=== PATIENT | female | born 1965 | race Caucasian/White ===

== ENCOUNTER 2016-04-06 09:46 | Outpatient (CLI) | payer BC, OTHER | END 2016-04-06 23:59 | DX: Z00.00 Encounter for general adult medical examination without abnormal findings (principal) ==

== ENCOUNTER 2016-04-13 10:02 | Outpatient (CLI) | payer OTHER | END 2016-04-13 10:03 | disposition home or self-care (01) | DX: Z12.31 Encounter for screening mammogram for malignant neoplasm of breast (principal) ==

== ENCOUNTER 2016-12-27 15:15 | Outpatient (CLI) | payer OTHER ==
[2016-12-27 19:11] LABS: HCT - HEMATOCRIT 41.5 % (37.0-47.0); HGB - HEMOGLOBIN 14.1 g/dL (12.0-16.0); MEAN CORPUSCULAR HEMOGLOBIN 33.7 pg (27.0-31.0); MEAN CORPUSCULAR HGB CONC 34.1 g/dL (32.0-36.0); MEAN CORPUSCULAR VOLUME 98.9 fL (81.0-99.0); MEAN PLATELET VOLUME 8.4 fL (7.9-10.8); RED BLOOD COUNT 4.2 10^6/uL (4.20-5.40); RED CELL DISTRIBUTION WIDTH 12.6 % (12.0-15.0); WHITE BLOOD COUNT 5.8 x10^3/uL (4.8-10.8)
[2016-12-27 19:24] LABS: ALBUMIN/GLOBULIN RATIO 1.7 (1.0-2.2); BILIRUBIN,TOTAL 0.5 mg/dL (0.2-1.0); CALCIUM 9.5 mg/dL (8.5-10.3); CREATININE 1.1 mg/dL (0.4-1.0); POTASSIUM 4.1 mmol/L (3.5-5.0); TOTAL PROTEIN 7.3 g/dL (6.7-8.2)
== END 2016-12-27 15:16 | disposition home or self-care (01) ==
LOC: LAB.WCP 15:15
PROVIDERS: ATTEND Family Medicine
DX: R42 Dizziness and giddiness (principal)
CPT/HCPCS: 36415; 80053; 85025

== ENCOUNTER 2018-01-23 11:28 | Outpatient (CLI) | payer OTHER ==
--- NOTE | 2018-01-24 09:02 | Mammography Report ---
Reason: SCREENING MAMMO Procedure Date: 01/23/2018 Accession Number: [id number] / [id number] Procedure: MGN - Screening Mammo Dig Bilat CPT Code: FULL RESULT: EXAM: Screening Mammo Dig Bilat DATE: 01/23/2018 11:47 AM CLINICAL HISTORY: Screening encounter. History of nulliparity and history of breast reduction in 2009 bilaterally. TECHNIQUE: Bilateral CC, laterally exaggerated CC, MLO views were obtained. COMPARISON: 04/13/2016 through 10/26/2009. FINDINGS: The breasts demonstrate heterogeneously dense fibroglandular parenchyma bilaterally. Typically benign coarse calcifications are again noted. No suspicious masses, clustered microcalcifications, or regions of architectural distortion are identified. IMPRESSION: Benign findings RECOMMENDATION: Routine annual screening unless otherwise clinically indicated. BIRADS CATEGORY 2: Benign findings STANDARD QUALIFYING STATEMENTS: 1. This examination was reviewed with the aid of Computer-Aided Detection (CAD). 2. A negative or benign imaging report should not preclude biopsy if clinically suspicious findings are present. 3. Dense breasts may obscure an underlying neoplasm. 4. This examination was reviewed without the aid of 3D breast imaging (tomosynthesis).
== END 2018-01-23 11:29 | disposition home or self-care (01) ==
LOC: DI.N 11:28
DX: Z12.31 Encounter for screening mammogram for malignant neoplasm of breast (principal)
CPT/HCPCS: 77067

== ENCOUNTER 2020-05-03 08:00 | Outpatient (CLI) | payer OTHER ==
[2020-05-03 18:21] LABS: BASOPHILS % (AUTO) 0.5 %; EOSINOPHILS # (AUTO) 0.1 10^3/uL (0.0-0.7); HCT - HEMATOCRIT 40.1 % (37.0-47.0); HGB - HEMOGLOBIN 13.5 g/dL (12.0-16.0); LYMPHOCYTES # (AUTO) 2.8 10^3/uL (1.5-3.5); LYMPHOCYTES % (AUTO) 49.1 %; MEAN CORPUSCULAR HEMOGLOBIN 33.5 pg (27.0-31.0); MEAN CORPUSCULAR HGB CONC 33.7 g/dL (32.0-36.0); MEAN CORPUSCULAR VOLUME 99.5 fL (81.0-99.0); MEAN PLATELET VOLUME 10.1 fL (7.9-10.8); MONOCYTES # (AUTO) 0.4 10^3/uL (0.0-1.0); MONOCYTES % (AUTO) 6.4 %; NEUTROPHILS # (AUTO) 2.5 10^3/uL (1.5-6.6); NEUTROPHILS % (AUTO) 42.8 %; PLT - PLATELET COUNT 269 10^3/uL (130-450); RED BLOOD COUNT 4.03 10^6/uL (4.20-5.40); RED CELL DISTRIBUTION WIDTH 12.1 % (12.0-15.0); WHITE BLOOD COUNT 5.7 x10^3/uL (4.8-10.8)
[2020-05-03 18:32] LABS: ALBUMIN 4.5 g/dL (3.2-5.5); ALBUMIN/GLOBULIN RATIO 1.7 (1.0-2.2); ALKALINE PHOSPHATASE 50 IU/L (42-121); ALT ALANINE AMINOTRANSFERASE 24 IU/L (10-60); AST ASPARTATE AMINOTRANSFERASE 23 IU/L (10-42); BILIRUBIN,TOTAL 0.5 mg/dL (0.2-1.0); BUN - BLOOD UREA NITROGEN 23 mg/dL (6-20); CALCIUM 9.4 mg/dL (8.5-10.3); CARBON DIOXIDE - CO2 25 mmol/L (21-32); CHLORIDE 100 mmol/L (101-111); CHOL/HDL RATIO 3.3 (<4.4); CHOLESTEROL 229 mg/dL; GFR - MDRD 58 (>89); GLUCOSE 101 mg/dL (70-100); HDL CHOLESTEROL 70 mg/dL; LDL CHOLESTEROL,CALCULATED 141 mg/dL; POTASSIUM 3.6 mmol/L (3.5-5.0); SODIUM 135 mmol/L (135-145); TOTAL PROTEIN 7.2 g/dL (6.7-8.2); TRIGLYCERIDES 89 mg/dL; VLDL CHOLESTEROL 18 mg/dL
== END 2020-05-03 23:59 | disposition home or self-care (01) ==
LOC: LAB.WCP 08:00
PROVIDERS: ATTEND Family Medicine
DX: Z00.00 Encounter for general adult medical examination without abnormal findings (principal)
CPT/HCPCS: 36415; 80053; 80061; 83721; 84443; 85025

== ENCOUNTER 2020-05-23 09:19 | Outpatient (CLI) | payer OTHER ==
--- NOTE | 2020-05-24 08:11 | Mammography Report ---
BILATERAL DIGITAL SCREENING MAMMOGRAM 3D/2D: 05/23/2020 CLINICAL: Routine screening. Comparison is made to exams dated: 01/23/2018 mammogram, 04/13/2016 mammogram, and 06/11/2013 mammogram - [facility]. The tissue of both breasts is heterogeneously dense. This may lower the sensitivity of mammography. No significant masses, calcifications, or other findings are seen in either breast. There has been no significant interval change. IMPRESSION: NEGATIVE There is no mammographic evidence of malignancy. A 1 year screening mammogram is recommended. This exam was interpreted at Station ID: [id number]. NOTE: For mammograms, a report in lay terms will be sent to the patient. Approximately 15% of breast malignancies will not be visualized mammographically. In the management of a palpable breast mass, a negative mammogram must not discourage biopsy of a clinically suspicious lesion. Electronically Signed By: Urbano Patel M.D. slc/penrad:05/23/2020 10:04:11 ACR BI-RADS Category 1: Negative 3341F PARENCHYMAL PATTERN: (D) - The breast(s) demonstrate(s) heterogeneously dense fibroglandular jayson flores. BI-RADS CATEGORY: (1) - 1 RECOMMENDATION: (ANNUAL) - Recommend routine annual screening mammography. [id number] 1 year screening LATERALITY: (B)
== END 2020-05-23 09:20 | disposition home or self-care (01) ==
LOC: DI.N 09:19
DX: Z12.31 Encounter for screening mammogram for malignant neoplasm of breast (principal)

== ENCOUNTER 2020-09-20 09:13 | Outpatient (CLI) | payer OTHER ==
--- NOTE | 2020-09-20 13:22 | XRAY Report ---
PROCEDURE: Knee 3 View RT INDICATIONS: SPRAIN OF R KNEE TECHNIQUE: 3 views of the right knee(s) were acquired. COMPARISON: None. FINDINGS: Bones: No fractures or dislocations. No suspicious bony lesions. Soft tissues: No joint effusion. No suspicious soft tissue calcifications. IMPRESSION: No trauma found, no effusion or loose body seen. Reviewed by: Salas Bates MD on 09/20/2020 1:21 PM PDT Approved by: Salas Bates MD on 09/20/2020 1:21 PM PDT Station ID: [id number]
== END 2020-09-20 09:14 | disposition home or self-care (01) ==
LOC: DI.N 09:13
PROVIDERS: ATTEND Physician Assistant Medical
DX: S83.91XA Sprain of unspecified site of right knee, initial encounter (principal)

== ENCOUNTER 2021-06-15 07:58 | Emergency (ER) | payer OTHER ==
[2021-06-15 08:36] LABS: BASOPHILS % (AUTO) 0.2 %; EOSINOPHILS # (AUTO) 0.1 10^3/uL (0.0-0.7); EOSINOPHILS % (AUTO) 1.1 %; HCT - HEMATOCRIT 41.9 % (37.0-47.0); HGB - HEMOGLOBIN 14.2 g/dL (12.0-16.0); LYMPHOCYTES # (AUTO) 1.5 10^3/uL (1.5-3.5); LYMPHOCYTES % (AUTO) 33.9 %; MEAN CORPUSCULAR HEMOGLOBIN 33.7 pg (27.0-31.0); MEAN CORPUSCULAR HGB CONC 33.9 g/dL (32.0-36.0); MEAN CORPUSCULAR VOLUME 99.5 fL (81.0-99.0); MEAN PLATELET VOLUME 9.6 fL (7.9-10.8); MONOCYTES # (AUTO) 0.2 10^3/uL (0.0-1.0); MONOCYTES % (AUTO) 4.5 %; NEUTROPHILS # (AUTO) 2.7 10^3/uL (1.5-6.6); NEUTROPHILS % (AUTO) 60.3 %; PLT - PLATELET COUNT 246 10^3/uL (130-450); RED BLOOD COUNT 4.21 10^6/uL (4.20-5.40); WHITE BLOOD COUNT 4.5 x10^3/uL (4.8-10.8)
--- NOTE | 2021-06-15 08:38 | ED Physician Documentation ---
PD HPI ABD PAIN - Stated complaint Stated Complaint: ABD PX - Chief complaint Chief Complaint: Abd Pain - History obtained from History obtained from: Patient - History of Present Illness Timing - onset: How many weeks ago (1) Timing - duration: Weeks (1) Timing - details: Gradual onset, Still present Quality: Cramping, Aching, Fullness/distended (feeling of bloating and distended lower abd. SHe thought it was gas or constipation. Tried Gas-Ex and stool softeners with some stool output. SHe is urinating but feels is not emptying fully. Denies vaginal discharge or bleeding.), Pain Radiation: Lower back, Left flank Improved by: BM. No: Eating Worsened by: Palpation. No: Eating Associated symptoms: Nausea, Constipation. No: Fever, Vomiting, Diarrhea, Dysuria, Vaginal bleeding, Vaginal dc Similar symptoms before: No diagnosis (she states she has had some lower left abd pain/cramps for months at times. Had had pelvic pains even years ago with pelvic U/S showing 3 cm ovarian dermoid at the time in 2013.) Recently seen: Not recently seen Review of Systems Constitutional: denies: Fever, Chills Nose: denies: Rhinorrhea / runny nose, Congestion Throat: denies: Sore throat Respiratory: denies: Cough GI: reports: Abdominal Pain, Nausea, Constipation (she felt less BMs, but not prolonged constipation per se.). denies: Vomiting, Diarrhea : reports: Hesitancy (feeling of incomplete emptying). denies: Dysuria, Discharge, Vaginal bleeding Skin: denies: Rash Musculoskeletal: denies: Neck pain, Back pain Neurologic: reports: Generalized weakness. 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: Ovarian cysts (left ovary years ago) Other Past Medical History: seasonal allergies - Past Surgical History Past Surgical History: Yes - Present Medications Home Medications: Ambulatory Orders Medication Instructions Recorded Confirmed Amox/Clav 875/125 [Augmentin] 1 each PO Q12H #10 tablet 06/15/21 Ondansetron Odt [Zofran] 4 mg TL Q6H PRN #10 tablet 06/15/21 - Allergies Allergies/Adverse Reactions: Allergies Allergy/AdvReac Type Severity Reaction Status Date / Time acetaminophen [From Vicodin] Allergy Unknown Verified 06/15/21 08:16 hydrocodone [From Vicodin] Allergy Unknown Verified 06/15/21 08:16 - Social History Does the pt smoke?: No Smoking Status: Never smoker - Immunizations Immunizations are current?: Yes PD ED PE NORMAL - Vitals Vital signs reviewed: Yes - General General: Alert and oriented X 3, Well developed/nourished - Neck Neck: Supple, no meningeal sign, No adenopathy - Cardiac Cardiac: RRR, No murmur - Respiratory Respiratory: Clear bilaterally - Abdomen Abdomen: Normal bowel sounds, Soft, Non distended, No organomegaly, Other (tender with fullness suprapubic and left lower abd, with mild percussion tenderness but no rebound nor referred tenderness. ) - Female Female : Deferred - Rectal Rectal: Deferred - Back Back: No CVA TTP - Derm Derm: Normal color, Warm and dry - Neuro Neuro: Alert and oriented X 3, No motor deficit, No sensory deficit, Normal speech Results - Vitals Vitals: Vital Signs - 24 hr 06/15/21 06/15/21 06/15/21 08:05 09:13 10:43 Temperature 37 C Heart Rate 77 61 57 L Respiratory 16 16 16 Rate Blood Pressure 135/78 H 94/61 O2 Saturation 99 100 100 06/15/21 06/15/21 13:11 14:16 Temperature 37.0 C Heart Rate 81 85 Respiratory 20 16 Rate Blood Pressure 110/69 117/92 H O2 Saturation 99 98 Oxygen O2 Source Room air - Labs Labs: Laboratory Tests 06/15/21 06/15/21 06/15/21 08:28 08:28 08:28 WBC 4.5 L RBC 4.21 Hgb 14.2 Hct 41.9 MCV 99.5 H MCH 33.7 H MCHC 33.9 RDW 13.0 Plt Count 246 MPV 9.6 Neut # (Auto) 2.7 Lymph # (Auto) 1.5 [place] # (Auto) 0.2 Eos # (Auto) 0.1 Baso # (Auto) 0.0 Absolute Nucleated RBC 0.00 Nucleated RBC % 0.0 Sodium 138 Potassium 3.5 Chloride 103 Carbon Dioxide 26 Anion Gap 9.0 BUN 15 Creatinine 0.8 Estimated GFR (MDRD) 74 L Glucose 114 H Calcium 9.0 Total Bilirubin 0.7 AST 21 ALT 21 Alkaline Phosphatase 44 Total Protein 6.3 L Albumin 3.7 Globulin 2.6 Albumin/Globulin Ratio 1.4 Lipase 36 CA 125 Antigen 141.6 H Urine Color Urine Clarity Urine pH Ur Specific [place] Urine Protein Urine Glucose (UA) Urine Ketones Urine Occult Blood Urine Nitrite Urine Bilirubin Urine Urobilinogen Ur Leukocyte Esterase Ur Microscopic Review Urine Culture Comments 06/15/21 09:08 WBC RBC Hgb Hct MCV MCH MCHC RDW Plt Count MPV Neut # (Auto) Lymph # (Auto) [place] # (Auto) Eos # (Auto) Baso # (Auto) Absolute Nucleated RBC Nucleated RBC % Sodium Potassium Chloride Carbon Dioxide Anion Gap BUN Creatinine Estimated GFR (MDRD) Glucose Calcium Total Bilirubin AST ALT Alkaline Phosphatase Total Protein Albumin Globulin Albumin/Globulin Ratio Lipase CA 125 Antigen Urine Color YELLOW Urine Clarity CLEAR Urine pH 6.5 Ur Specific [place] 1.025 Urine Protein NEGATIVE Urine Glucose (UA) NEGATIVE Urine Ketones NEGATIVE Urine Occult Blood NEGATIVE Urine Nitrite NEGATIVE Urine Bilirubin NEGATIVE Urine Urobilinogen 0.2 (NORMAL) Ur Leukocyte Esterase NEGATIVE Ur Microscopic Review NOT INDICATED Urine Culture Comments NOT INDICATED - Rads (name of study) abd CT Radiology: Prelim report reviewed (left ovarian mass 7x7x6 cm concerning for neoplasm. Jose Armando pushing of bladder to right. Some pelvic fluid/ascites. ), See rad report pelvic U/S Radiology: Prelim report reviewed (pelvic mass. some free fluid. 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 It is pushing bladder to right. SOme pelvic fluid/ascites. bladder scanner showing 250 ml, so some outflow obstruction, but not enough to need catheter.), considered differential (consider diverticulitis, UTI, stone, ovarian cause, urinary retention, among other causes. ), d/w patient, d/w search engine optimization consultant ([employer], who asks for some specific blood tests and also to get U/S pelvis prior to discharge, and she will see patient in office in next few days. ) Departure - Departure Disposition: 01 Home, Self Care Clinical Impression: Lower abdominal pain, Urinary retention with incomplete bladder emptying, Colitis, Ovarian mass, left Condition: Stable Follow-Up: Chey Naylor MD [Provider Admit Priv/Credential] - Prescriptions: Amox/Clav 875/125 [Augmentin] 1 each PO Q12H #10 tablet Ondansetron Odt [Zofran] 4 mg TL Q6H PRN #10 tablet PRN Reason: Nausea / Vomiting Comments: You are having some urinary retention with incomplete emptying and may account for some of the fullness feeling. You do seem to be emptying adequately enough though to not need a catheter per se. The tumor in the left ovary is crowding the bladder some and is likely accounting for some of the difficulty emptying. The ovarian tumor will need further assessment. Call Dr. Naylor's office to arrange a prompt follow-up. I did talk with Dr. Naylor and she wants to have a follow-up appointment if not tomorrow then early next week. At that point they can discuss the next steps in surgical options. The CT scan also showed some inflammation of the colon in the area (colitis). This would be treated with Augmentin antibiotic and anti-inflammatory such as naproxen or ibuprofen to tablets 3 times daily with food for the next several days to week. Add Tylenol every 4-6 hours if needed for pain. Use ondansetron if needed for nausea. I sent your prescriptions to [facility]. Discharge Date/Time: 06/15/21 14:28
[2021-06-15 08:52] LABS: ALBUMIN 3.7 g/dL (3.2-5.5); ALBUMIN/GLOBULIN RATIO 1.4 (1.0-2.2); BILIRUBIN,TOTAL 0.7 mg/dL (0.2-1.0); CREATININE 0.8 mg/dL (0.4-1.0); POTASSIUM 3.5 mmol/L (3.5-5.0); TOTAL PROTEIN 6.3 g/dL (6.7-8.2)
[2021-06-15] MEDS ORDERED: KETOROLAC 30 MG/ML VIAL IVP STA (08:56)
[2021-06-15] MEDS ORDERED: SODIUM CHLORIDE 0.9% 1,000 ML IV STA (08:56)
[2021-06-15] MEDS ORDERED: HYDROmorphone 0.5 MG/0.5 ML SYRINGE IVP STA (08:57)
[2021-06-15] MEDS ORDERED: IOVERSOL 320 50 ML VIAL ONE (09:10)
[2021-06-15 09:18] LABS: BILIRUBIN,URINE NEGATIVE (NEGATIVE); GLUCOSE, URINE (UA) NEGATIVE (NEGATIVE); KETONES,URINE (UA) NEGATIVE (NEGATIVE); LEUKOCYTE ESTERASE, URINE NEGATIVE (NEGATIVE); NITRITE,URINE NEGATIVE (NEGATIVE); OCCULT BLOOD,URINE NEGATIVE (NEGATIVE); PH,URINE 6.5 PH (5.0-7.5); PROTEIN,URINE NEGATIVE (NEGATIVE); UROBILINOGEN,URINE 0.2 (NORMAL) E.U./dL (NORMAL)
[2021-06-15 09:23] LABS: CLARITY,URINE CLEAR (CLEAR)
[2021-06-15] MEDS ORDERED: ONDANSETRON 4 MG/2 ML VIAL IVP STA (09:25)
[2021-06-15] MEDS ORDERED: IOVERSOL 320 50 ML VIAL IVP ONE (10:07)
--- NOTE | 2021-06-15 10:22 | CT Report ---
PROCEDURE: Abdomen/Pelvis W INDICATIONS: lower/left abd cramping for a week, worsening CONTRAST: IV CONTRAST: Optiray 320 ml: 100 PO CONTRAST: *NO PO CONTRAST TECHNIQUE: After the administration of IV contrast, 5 mm thick sections acquired from the diaphragms to the symp hysis. 5 mm thick coronal and sagittal reformats were acquired. For radiation dose reduction, the f ollowing was used: automated exposure control, adjustment of mA and/or kV according to patient size. COMPARISON: None. FINDINGS: Image quality: Excellent. ABDOMEN: Lung bases: Lung bases are clear. Heart size is normal. Solid organs: Liver and spleen are normal in size and enhancement. Gallbladder is within normal baltazar its Biliary system is non dilated. Pancreas enhances normally. No adrenal nodules. Kidneys demons trate normal size and enhancement, without hydronephrosis. Peritoneum and bowel: There is no bowel obstruction. No gross stomach or small bowel wall thickening. Small to moderate amount of ascites fluid is seen in abdomen and pelvis. No gross peritoneal free ai r. Questionable diffuse colonic wall thickening is noted, which may represent low-grade colitis. No a bscess collection. Nodes and vessels: No retroperitoneal or mesenteric adenopathy by size criteria. Aorta and inferior vena cava are normal in size. Miscellaneous: No ventral hernias. PELVIS: Genitourinary: Bladder wall thickness is normal. There is a lobulated and heterogeneously enhancing l esion involving left adnexa measures up to 7.6 x 7.3 x 6.7 cm in largest transverse, AP and craniocau patricia dimensions concerning for neoplasm of left ovarian origin. Series 6 image 25 and series 3 image 6 4. Miscellaneous: No inguinal hernias or adenopathy. Bones: No suspicious bony lesions. No vertebral body compression fractures. IMPRESSION: 1. Small to moderate amount of ascites fluid in abdomen or pelvis. No gross peritoneal free air. 2. 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 3. No bowel obstruction. Questionable colonic wall thickening which may be due to underdistention, lo w-grade colitis cannot be excluded. No abscess collection. 4. No renal stone or hydronephrosis. Reviewed by: Rmoeo Swan MD on 06/15/2021 10:20 AM PDT Approved by: Romeo Swan MD on 06/15/2021 10:20 AM PDT Station ID: [id number]
[2021-06-15] MEDS ORDERED: AMOX/CLAV 875 MG/125 MG TABLET PO STA (13:19)
[2021-06-15] MEDS ORDERED: ACETAMINOPHEN 325 MG TABLET PO STA (13:38)
--- NOTE | 2021-06-15 13:47 | Ultrasound Report ---
PROCEDURE: Pelvic w/Transvaginal INDICATIONS: pelvic mass on ct TECHNIQUE: Real-time scanning was performed of the pelvic organs, with image documentation. Additional endovagi nal scanning was necessary due to incomplete visualization of the adnexal and endometrial structures by transabdominal scanning. COMPARISON: CT of abdomen and pelvis from the same day.. FINDINGS: Uterus is enlarged and measures 8.8 x 4.6 x 4.9 cm in size. Heterogeneous myometrial echotexture is s een. A calcified intramural fibroid measures 1.5 x 1.2 x 1.8 cm is seen in posterior myometrium near midline. Endometrium measures 8.7 mm in thickness. No gross endometrial mass or fluid is seen. Right ovary is visualized on this study. Left ovary measures 8.7 x 7.2 x 6.9 cm in size with a volume of 225 cc. There is suggestion of a large solid mass involving left ovary measures 4.9 x 4.7 x 4.1 c m in size. The internal vascularity is seen. Moderate free fluid is seen in pelvis and bilateral adnexa. IMPRESSION: 1. 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 Right ovary is not visualized on this study. 2. Moderate pelvic free fluid. 3. Enlarged uterus with heterogeneous myometrial echotexture and a calcified uterine fibroid as above . No gross endometrial mass or fluid. Reviewed by: Romeo Swan MD on 06/15/2021 1:46 PM PDT Approved by: Romeo Swan MD on 06/15/2021 1:46 PM PDT Station ID: [id number]
[2021-06-15 14:26] VITALS: BP 117/92
== END 2021-06-15 14:28 | disposition home or self-care (01) ==
LOC: ED 07:58
DX: K52.9 Noninfective gastroenteritis and colitis, unspecified (principal); N83.8 Other noninflammatory disorders of ovary, fallopian tube and broad ligament; R18.8 Other ascites
CPT/HCPCS: 36415; 51798; 74177; 76830; 76856; 80053; 81003; 83690; 85025; 86304; 86305; 96374; 96375; 99284; A9270; J1170; 81001; 87086

== ENCOUNTER 2021-09-12 08:00 | Outpatient (CLI) | payer OTHER ==
[2021-09-12 17:09] LABS: HCT - HEMATOCRIT 36.7 % (37.0-47.0); HGB - HEMOGLOBIN 12.8 g/dL (12.0-16.0); MEAN CORPUSCULAR HEMOGLOBIN 33.6 pg (27.0-31.0); MEAN CORPUSCULAR HGB CONC 34.9 g/dL (32.0-36.0); MEAN CORPUSCULAR VOLUME 96.3 fL (81.0-99.0); MEAN PLATELET VOLUME 9.5 fL (7.9-10.8); NEUTROPHILS # (AUTO) 1.1 10^3/uL (1.5-6.6); NEUTROPHILS % (AUTO) 37.5 %; RED BLOOD COUNT 3.81 10^6/uL (4.20-5.40); RED CELL DISTRIBUTION WIDTH 11.7 % (12.0-15.0)
[2021-09-12 17:26] LABS: ALBUMIN 4.1 g/dL (3.2-5.5); ALBUMIN/GLOBULIN RATIO 1.4 (1.0-2.2); BILIRUBIN,TOTAL 0.7 mg/dL (0.2-1.0); CALCIUM 9.4 mg/dL (8.5-10.3); CREATININE 0.7 mg/dL (0.4-1.0); POTASSIUM 3.8 mmol/L (3.5-5.0)
== END 2021-09-12 23:59 | disposition home or self-care (01) ==
LOC: MAC.MOP 08:00
PROVIDERS: ATTEND Internal Medicine Hematology & Oncology
DX: C56.2 Malignant neoplasm of left ovary (principal)
CPT/HCPCS: 36415; 80053; 85027

== ENCOUNTER 2022-01-30 08:25 | Outpatient (CLI) | payer OTHER ==
[2022-01-30 09:04] LABS: % IRON SATURATION 31 % (20-50); CHOL/HDL RATIO 3.3 (<4.4); CHOLESTEROL 252 mg/dL; HDL CHOLESTEROL 76 mg/dL; IRON 103 ug/dL (28-170); LDL CHOLESTEROL,CALCULATED 164 mg/dL; LDL/HDL RATIO 2.2 (<4.4); TOTAL IRON BINDING CAPACITY 328 ug/dL (250-450); TRANSFERRIN 234 mg/dL (192-382); TRIGLYCERIDES 58 mg/dL; VLDL CHOLESTEROL 12 mg/dL
[2022-01-30 12:23] LABS: ESTIMATED AVERAGE GLUCOSE 120 mg/dL (70-100); HEMOGLOBIN A1c% 5.8 % (4.27-6.07)
== END 2022-01-30 08:26 | disposition home or self-care (01) ==
LOC: LAB 08:25
PROVIDERS: ATTEND Naturopath
DX: E78.00 Pure hypercholesterolemia, unspecified (principal); R77.8 Other specified abnormalities of plasma proteins; R73.9 Hyperglycemia, unspecified; E72.11 Homocystinuria
CPT/HCPCS: 36415; 80061; 82728; 83036; 83090; 83540; 83721; 84466

== ENCOUNTER 2022-02-05 10:16 | Outpatient (CLI) | payer OTHER ==
--- NOTE | 2022-02-06 10:46 | Mammography Report ---
BILATERAL DIGITAL SCREENING MAMMOGRAM 3D/2D: 02/05/2022 CLINICAL: Routine screening. Comparison is made to exams dated: 05/23/2020 mammogram, 01/23/2018 mammogram, 04/13/2016 mammogram, 05/20 mammogram, 05/16/2011 mammogram, and 10/26/2009 mammogram - [facility]. Both breasts are heterogeneously dense, which may obscure small masses (category c / 51-75% glandular tissue). There are benign calcifications in the left breast. No significant masses, calcifications, or other findings are seen in either breast. There has been no significant interval change. IMPRESSION: BENIGN There is no mammographic evidence of malignancy. A 1 year screening mammogram is recommended. Based on the Tyrer Cuzick model (a risk assessment model) the patients lifetime risk is 13.7% and he r 10 year risk is 4.8%. According to the ACR, ACS, and NCCN guidelines, an annual breast MRI exam belinda ng with mammogram is recommended if the patients lifetime risk is 20% or greater. This exam was interpreted at Station ID: [id number]. NOTE: For mammograms, a report in lay terms will be sent to the patient. Approximately 15% of breast malignancies will not be visualized mammographically. In the management of a palpable breast mass, a negative mammogram must not discourage biopsy of a clinically suspicious lesion. Electronically Signed By: Сергей Hadley M.D. acr/penrad:02/05/2022 16:26:32 ACR BI-RADS Category 2: Benign Finding(s) 3342F PARENCHYMAL PATTERN: (D) - The breast(s) demonstrate(s) heterogeneously dense fibroglandular pardeandrey mark. BI-RADS CATEGORY: (2) - 2 RECOMMENDATION: (ANNUAL) - Recommend routine annual screening mammography. [id number] 1 year screening LATERALITY: (B)
== END 2022-02-05 10:17 | disposition home or self-care (01) ==
LOC: DI.N 10:16
DX: Z12.31 Encounter for screening mammogram for malignant neoplasm of breast (principal)

== ENCOUNTER 2022-05-09 10:21 | Outpatient (CLI) | payer OTHER ==
--- NOTE | 2022-05-09 13:27 | XRAY Report ---
PROCEDURE: Lumbar Spine Complete INDICATIONS: SCIATICA TECHNIQUE: 4 views of the lumbar spine were acquired. COMPARISON: CT abdomen pelvis 01/23/2022 FINDINGS: Bones: 5 [id number] vertebrae are present. Moderate focal rightward scoliotic curvature betwee n L2 and L5 with the apex at the L2-3-4 level. There is asymmetric disc height loss and prominent lef t lateral endplate spurring at this level. Grade 1 anterolisthesis L4 on 5. Prominent facet sclerosis and hypertrophy L4-5 and L5-S1. Right-sided L5 pars defect is not excluded, difficult to see due to overlapping shadows. No vertebral body compression fractures. No suspicious bony lesions. Soft tissues: Overlying bowel gas pattern is normal. No suspicious soft tissue calcifications. IMPRESSION: 1. Prominent, chronic lumbar dextroscoliosis with multilevel disc degeneration. 2. Grade 1 L4-5 anterolisthesis, stable. Reviewed by: Colette Chung MD on 05/09/2022 1:26 PM PDT Approved by: Colette Chung MD on 05/09/2022 1:26 PM PDT Station ID: [id number]
== END 2022-05-09 10:22 | disposition home or self-care (01) ==
LOC: DI 10:21
PROVIDERS: ATTEND Nurse Practitioner Family
DX: M51.36 Other intervertebral disc degeneration, lumbar region (principal); M43.16 Spondylolisthesis, lumbar region; M41.9 Scoliosis, unspecified; M47.816 Spondylosis without myelopathy or radiculopathy, lumbar region; M47.817 Spondylosis without myelopathy or radiculopathy, lumbosacral region

== ENCOUNTER 2022-12-11 12:27 | Outpatient (CLI) | payer BC ==
[2022-12-11] MEDS ORDERED: BARIUM SULFATE 450 ML BOTTLE PO ONE (14:46)
[2022-12-11] MEDS ORDERED: iohexoL-300 100 ML VIAL IVP ONE (14:47)
--- NOTE | 2022-12-12 12:49 | CT Report ---
PROCEDURE: CHEST W INDICATIONS: OVARIAN CA CONTRAST: 100ml omni 300 TECHNIQUE: After the administration of intravenous contrast, 1 mm axial images were acquired from the pulmonary apices through the posterior costophrenic angles. Axial 5 mm soft tissue kernel reconstructions were performed as well as 8 mm axial MIP and coronal and sagittal 5 mm reformations. For radiation dose reduction, the following was used: automated exposure control, adjustment of mA and/or kV according to patient size. COMPARISON: CT abdomen pelvis 01/23/2022 FINDINGS: Lymph nodes: No highly suspicious lymph nodes visualized. Vasculature: Aorta and main pulmonary artery diameters are within normal range. Heart: No pericardial effusion. Lung parenchyma and pleura: Previously demonstrated 2 mm subpleural right lower lobe nodule () i s unchanged. No pleural effusion. A few scattered calcified granulomata are present. Chest wall/musculoskeletal: Multilevel degenerative change of the visualized spine. Visualized upper abdomen: Dictated separately. IMPRESSION: 1. Previously demonstrated small right lower lobe nodule is unchanged. 2. No pleural effusion or evidence of thoracic adenopathy. 3. Same-day CT of the abdomen and pelvis is dictated separately. Reviewed by: Juan A nAn MD on 12/12/2022 12:47 PM PDT Approved by: Juan A Ann MD on 12/12/2022 12:47 PM PDT Station ID: [id number]
--- NOTE | 2022-12-12 13:09 | CT Report ---
PROCEDURE: ABDOMEN/PELVIS W INDICATIONS: OVARIAN CA CONTRAST: 100ml omni 300 TECHNIQUE: After the administration of oral and intravenous contrast, 5 mm thick sections acquired from the diap hragms to the symphysis. 5 mm thick coronal and sagittal reformats were acquired. For radiation dos e reduction, the following was used: automated exposure control, adjustment of mA and/or kV accordin g to patient size. COMPARISON: CT abdomen pelvis 01/23/2022 FINDINGS: Visualized lung bases: Dictated separately. Liver and biliary tree: Similar subcentimeter hypodensity in hepatic segment 5, too small to characte rize. No biliary ductal dilation demonstrated. Gallbladder: No radiopaque cholelithiasis. Spleen: Unremarkable. Pancreas: Unremarkable. Adrenal glands: Unremarkable. Kidneys and ureters: No hydronephrosis. Gastrointestinal tract: No bowel obstruction. Peritoneal cavity: No free air or free fluid. Bladder: Unremarkable. Pelvic organs/lymph nodes: The uterus is not visualized and is presumed surgically absent. Demonstrat ed cystic structure adjacent to the right external iliac vessels, 3.0 x 2.3 cm (2/66) previously 4.0 x 2.7 cm remeasured. No definite new or worsening adenopathy identified. Vasculature: No abdominal aortic aneurysm. Musculoskeletal: Degenerative change of the spine. Right L5-S1 pars defect. IMPRESSION: 1. Mild decrease in size of the previously demonstrated nonspecific/indeterminate right pelvic cystic structure. Attention on follow-up recommended. 2. No definite evidence of new or worsening metastatic disease identified within the abdomen or pelvi s. 3. Same-day CT of the chest is dictated separately. Reviewed by: Juan A Ann MD on 12/12/2022 1:07 PM PDT Approved by: Juan A Ann MD on 12/12/2022 1:07 PM PDT Station ID: [id number]
== END 2022-12-11 12:28 | disposition home or self-care (01) ==
LOC: DI 12:27
PROVIDERS: ATTEND Registered Nurse Obstetric, High-Risk
DX: Z08 Encounter for follow-up examination after completed treatment for malignant neoplasm (principal); Z85.43 Personal history of malignant neoplasm of ovary; R19.8 Other specified symptoms and signs involving the digestive system and abdomen; R93.5 Abnormal findings on diagnostic imaging of other abdominal regions, including retroperitoneum; R91.1 Solitary pulmonary nodule
CPT/HCPCS: 71260; 74177; A9270; Q9967

== ENCOUNTER 2023-10-09 09:20 | Outpatient (CLI) | payer BC ==
--- NOTE | 2023-10-11 15:34 | Mammography Report ---
BILATERAL DIGITAL SCREENING MAMMOGRAM 3D/2D: 10/09/2023 CLINICAL: Routine screening. Comparison is made to exams dated: 02/05/2022 mammogram, 05/23/2020 mammogram, 01/23/2018 mammogram, mammogram, 06/11/2013 mammogram, and 05/16/2011 mammogram - [facility]. Both breasts are heterogeneously dense, which may obscure small masses (category c / 51-75% glandular tissue). No significant masses, calcifications, or other findings are seen in either breast. There has been no significant interval change. IMPRESSION: NEGATIVE There is no mammographic evidence of malignancy. A 1 year screening mammogram is recommended. Based on the Tyrer Cuzick model (a risk assessment model) the patient's lifetime risk is 13.2% and he r 10 year risk is 5.2%. According to the ACR, ACS, and NCCN guidelines, an annual breast MRI exam belinda ng with mammogram is recommended if the patient's lifetime risk is 20% or greater. This exam was interpreted at Station ID: [id number]. NOTE: For mammograms, a report in lay terms will be sent to the patient. Approximately 15% of breast malignancies will not be visualized mammographically. In the management of a palpable breast mass, a negative mammogram must not discourage biopsy of a clinically suspicious lesion. Electronically Signed By: Joyce Funes M.D., Ph.D. /deni:10/10/2023 10:27:50 letter sent: No_Letter ACR BI-RADS Category 1: Negative 3341F PARENCHYMAL PATTERN: (D) - The breast(s) demonstrate(s) heterogeneously dense fibroglandular jayson flores. BI-RADS CATEGORY: (1) - 1 RECOMMENDATION: (ANNUAL) - Recommend routine annual screening mammography. [id number] 1 year screening LATERALITY: (B)
== END 2023-10-09 09:21 | disposition home or self-care (01) ==
LOC: DI.N 09:20
DX: Z12.31 Encounter for screening mammogram for malignant neoplasm of breast (principal); R92.333 Mammographic heterogeneous density, bilateral breasts